=== PATIENT | male | born 1995 | race Caucasian/White ===

== ENCOUNTER 2017-07-31 01:08 | Emergency (ER) | payer BC, OTHER ==
[2017-07-31] MEDS ORDERED: Ondansetron HCl/PF 4 MG/2 ML Vial ONE (02:55)
[2017-07-31] MEDS ORDERED: Ketorolac Tromethamine 30 MG/ML VIAL ONE (02:55)
[2017-07-31] MEDS ORDERED: Bacitracin Zinc 1 Packet ONE (03:16)
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
[2017-07-31] MEDS ORDERED: ISOVUE-370 76%-LOCM 1 ML ONE (16:59)
== END 2017-07-31 03:54 | disposition home or self-care (01) ==
LOC: ERS 01:08
DX: S00.03XA Contusion of scalp, initial encounter (principal); S60.512A Abrasion of left hand, initial encounter; S60.511A Abrasion of right hand, initial encounter; F41.9 Anxiety disorder, unspecified; F32.9 Major depressive disorder, single episode, unspecified; V43.62XA Car passenger injured in collision with other type car in traffic accident, initial encounter
CPT/HCPCS: 70450; 71260; 72125; 74177; 96374; 96375; J1885; J2405